=== PATIENT | female | born 1960 | race Two or more races ===

== ENCOUNTER 2021-02-05 09:45 | Inpatient (IN) | payer OTHER ==
[~2021-02-05] VITALS: Ht 167.6 cm; Wt 81.6 kg
[2021-02-11] MEDS ORDERED: INTEGRA PLUS C1 EACH PO (08:04)
[2021-02-11] MEDS ORDERED: BACTRIM DS TAB1 EACH PO (08:04)
[2021-02-11] MEDS ORDERED: OXYC1TAB9 PO (08:04)
[2021-02-11] MEDS ORDERED: XARELTO10 MG PO (08:04)
== END 2021-02-11 15:10 | disposition home or self-care (01) | DRG 470 ==
LOC: EDSTATUS 09:45 → ADM 09:45 → SURH 02-09 05:35 → O/R 02-09 05:35 → SURH 02-09 07:00
PROVIDERS: ADMIT Orthopaedic Surgery Sports Medicine; ATTEND Orthopaedic Surgery Sports Medicine
PROC: 0SRC0J9 Replacement of Right Knee Joint with Synthetic Substitute, Cemented, Open Approach (ICD-10-PCS; principal; 2021-02-09 07:00)
DX: M17.11 Unilateral primary osteoarthritis, right knee (principal)

== ENCOUNTER 2023-09-22 10:00 | Inpatient (IN) | payer OTHER ==
[~2023-09-22] VITALS: Ht 172.7 cm; Wt 85.7 kg
[~2023-09-22 10:00] MED LIST: BACTRIM DS TAB1 EACH PO; INTEGRA PLUS C1 EACH PO; OXYC1TAB9 PO; XARELTO10 MG PO
[2023-09-22] MEDS ORDERED: LIPITOR20 MG PO (12:46)
[2023-09-26] MEDS ORDERED: CEFAZOLIN SODIUM 1,000 MG VIAL IV ONE (15:15)
[2023-09-26] MEDS ORDERED: TRANEXAMIC ACID 100MG/1ML (1000MG) AMPUL IV ONE (15:15)
[2023-09-26] MEDS ORDERED: MORPHINE SULFATE 4 MG/ML VIAL IV ONE (16:30)
[2023-09-26] MEDS ORDERED: LIDOCAINE HCL/MPF 1% 2ML AMPUL IJ ONE (16:30)
[2023-09-26] MEDS ORDERED: KETOROLAC TROMETHAMINE 60 MG VIAL IM ONE (16:30)
[2023-09-26] MEDS ORDERED: ISOPROPYL ALCOHOL 30 ML OUNCE TOP ONE (16:30)
[2023-09-26] MEDS ORDERED: SODIUM CHLORIDE 0.9% IV ONE (16:30)
[2023-09-26] MEDS ORDERED: BUPIVACAINE HCL 30 ML VIAL IJ ONE (16:30)
[2023-09-26] MEDS ORDERED: TRANEXAMIC ACID IV ONE (16:30)
[2023-09-26] MEDS ORDERED: LIDOCAINE HCL 1%/EPINEPHRINE 20ML VIAL IJ ONE (16:45)
[2023-09-26] MEDS ORDERED: POVIDONE-IODINE 0.75 OZ PACKET TOP ONE (16:45)
[2023-09-26] MEDS ORDERED: ONDANSETRON HCL 2 MG/ML VIAL IV PRN (17:45)
[2023-09-26] MEDS ORDERED: MORPHINE SULFATE 4 MG/ML CARTRIDGE IV PRN (17:45)
[2023-09-26] MEDS ORDERED: SODIUM CHLORIDE 0.45 % 1,000 ML IV SCH (17:45)
[2023-09-26] MEDS ORDERED: MORPHINE SULFATE 2 MG/ML CARTRIDGE IV ONE (17:45)
[2023-09-26] MEDS ORDERED: METHYLPREDNISOLONE ACETATE 80 MG/ML VIAL IJ ONE (18:00)
[2023-09-26] MEDS ORDERED: CEFAZOLIN SODIUM 1,000 MG VIAL IV SCH (18:00)
[2023-09-26] MEDS ORDERED: GENTAMICIN SULFATE 40 MG/ML VIAL IV SCH (21:00)
[2023-09-26] MEDS ORDERED: TRAMADOL HCL 50 MG TABLET PO PRN (23:00)
[2023-09-26 23:04] LABS: HEMATOCRIT 37.8 % (36.0-45.00); HEMOGLOBIN 12.6 g/dL (12.0-15.00); RED BLOOD COUNT 4.27 M/uL (4.00-6.00)
[2023-09-27 01:16] LABS: HEMATOCRIT 36.6 % (36.0-45.00); HEMOGLOBIN 12.2 g/dL (12.0-15.00); MEAN CELL VOLUME 86.4 fL (80.00-100.00); MEAN CORPUSCULAR HEMOGLOBIN 28.7 pg (27.00-32.0); MEAN CORPUSCULAR HGB CONC 33.2 g/dl (32.0-36.0); PLATELET COUNT 181 K/uL (150-450); RED BLOOD COUNT 4.24 M/uL (4.00-6.00); RED CELL DISTRIBUTION WIDTH 14.8 % (11.5-14.5)
[2023-09-27] MEDS ORDERED: IRON FUM,PS/FOLIC/BCOMP,C NO.9 1 CAP CAPSULE PO SCH (09:00)
[2023-09-27] MEDS ORDERED: BACITRACIN 28.35 GM OINT.TUBE TOP SCH (09:00)
[2023-09-27] MEDS ORDERED: ATORVASTATIN CALCIUM 20 MG TABLET PO SCH (09:00)
[2023-09-27] MEDS ORDERED: SENNA/DOCUSATE SODIUM 1 TAB TABLET PO SCH (09:00)
[2023-09-27] MEDS ORDERED: RIVAROXABAN 10 MG TAB PO SCH (09:00)
[2023-09-27 12:19] LABS: BILIRUBIN TOTAL 0.8 mg/dL (0.3-1.2); CALCIUM 8.4 mg/dL (8.5-10.1); CREATININE SERUM 0.62 mg/dL (0.55-1.02); GFR 96.91; GLOBULINA 3.6 G/DL (2.4-3.5); POTASSIUM 4.41 mEq/L (3.5-5.1); TOTAL PROTEIN 6.6 gm/dL (6.4-8.2)
[2023-09-27] MEDS ORDERED: CEFAZOLIN SODIUM 1,000 MG VIAL IV SCH (14:00)
[2023-09-28 01:34] LABS: HEMATOCRIT 33.1 % (36.0-45.00); MEAN CELL VOLUME 87.2 fL (80.00-100.00); MEAN CORPUSCULAR HEMOGLOBIN 28.9 pg (27.00-32.0); MEAN CORPUSCULAR HGB CONC 33.1 g/dl (32.0-36.0); PLATELET COUNT 167 K/uL (150-450); RED CELL DISTRIBUTION WIDTH 14.6 % (11.5-14.5)
[2023-09-28] MEDS ORDERED: TRAMADOL HCL50 MG PO (06:32)
[2023-09-28] MEDS ORDERED: Septra Ds Tablet PO (06:32)
[2023-09-28] MEDS ORDERED: INTEGRA PLUS C1 EACH PO (06:32)
[2023-09-28] MEDS ORDERED: XARELTO10 MG PO (06:32)
[2023-09-28] MEDS ORDERED: SULFAMETHOXAZOLE/TRIMETHOPRIM DS 1 TAB PO SCH (09:00)
== END 2023-09-28 13:57 | disposition home or self-care (01) | DRG 470 ==
LOC: O/R 09-26 08:27 → SURG 09-26 10:00 → OB/GYN 09-26 18:48
PROVIDERS: ADMIT Orthopaedic Surgery Sports Medicine; ATTEND Orthopaedic Surgery Sports Medicine
PROC: 0SRD0J9 Replacement of Left Knee Joint with Synthetic Substitute, Cemented, Open Approach (ICD-10-PCS; principal; 2023-09-26 15:15)
DX: M17.12 Unilateral primary osteoarthritis, left knee (principal)